=== PATIENT | male | born 1945 | race Caucasian/White ===

== ENCOUNTER 2017-03-03 10:02 | Day surgery (SDC) | payer MEDICARE, BC ==
[2017-03-03] MEDS ORDERED: PROPOFOL 10 MG/ML VIAL IV ONE (14:00)
[2017-03-03] MEDS ORDERED: LIDOCAINE 2% MDV (20MG/ML) 20ML VIAL IV ONE (14:00)
--- NOTE | 2017-03-05 12:10 | Operative Note ---
DATE OF SURGERY: 03/03/2017 OPERATION: ESOPHAGOGASTRODUODENOSCOPY. INDICATION: Episodic left lower chest discomfort, somewhat improved with the use of omeprazole. Upper endoscopy is performed at this time for further evaluation, particularly to rule out esophageal reflux disease. ANESTHESIA: Intravenous sedation was administered by the department of anesthesiology and included Diprivan titrated to effect. PROCEDURE: Following informed consent from this alert individual, including a discussion of the risks and benefits of the procedure and an opportunity for the patient to ask questions, the patient was in the left lateral decubitus position. The Olympus TVR772 video endoscope was inserted into the esophagus without resistance. The proximal esophagus had a normal appearance with normal folds and distensibility. The mid esophagus likewise was free from changes. The squamocolumnar junction was well defined and demonstrated a minute 3 mm shallow ulceration at the gastroesophageal junction. There was no bleeding noted. The stomach was entered and found to be unremarkable. Pylorus was patent. The duodenal bulb, sweep and descending duodenum were examined in a serial fashion and found to be normal as well. The endoscope was then drawn back into the body of the stomach. Retroflexion accomplished following air insufflation failed to demonstrate any additional changes. The endoscope was then straightened and withdrawn back through a normal esophagus. Again a minute 3 mm GE junction ulceration was noted but no other changes were appreciated. The endoscope was then withdrawn back through a normal mid and proximal esophagus and removed from the patient. He tolerated the procedure well and was returned to the recovery area in stable condition. IMPRESSION: Minute 2-3 mm ulceration at the GE junction. Otherwise unremarkable esophagogastroduodenoscopy. RECOMMENDATION: The patient was advised to continue with omeprazole but take it on a daily basis each morning. He was also advised to follow up with Dr. Dietz for possible cardiac evaluation as well, as the discomfort extends to the left shoulder in a numbing type sensation. As always, thank you for allowing me to participate in the care of your patient. Sixto Claudio, CC: SAMIRA DIETZ MD, FACP [facility]
== END 2017-03-03 12:20 | disposition home or self-care (01) ==
LOC: HOP 10:02
PROVIDERS: ATTEND Internal Medicine Gastroenterology
DX: K25.9 Gastric ulcer, unspecified as acute or chronic, without hemorrhage or perforation (principal); E78.00 Pure hypercholesterolemia, unspecified; J44.9 Chronic obstructive pulmonary disease, unspecified; I10 Essential (primary) hypertension

== ENCOUNTER 2019-04-01 08:25 | Day surgery (SDC) | payer MEDICARE, BC ==
[~2019-04-01 08:25] MED LIST: ACETAMINOPHEN 1,000 MG/100 ML BTL IVPB ONE
[2019-04-01] MEDS ORDERED: GLYCOPYRROLATE 0.2 MG/ML ML IV ONE (08:26)
[2019-04-01] MEDS ORDERED: FENTANYL PF 100MCG/2ML VIAL IV ONE (08:26)
[2019-04-01] MEDS ORDERED: PROPOFOL 10 MG/ML VIAL IV ONE (08:26)
[2019-04-01] MEDS ORDERED: ONDANSETRON HCL IV 4 MG/2 ML VIAL IVP ONE (08:26)
[2019-04-01] MEDS ORDERED: MIDAZOLAM HCL 2MG/2ML VIAL IV ONE (08:26)
[2019-04-01] MEDS ORDERED: LIDOCAINE 2% MDV (20MG/ML) 20ML VIAL IV ONE (08:26)
[2019-04-01] MEDS ORDERED: DEXAMETHASONE 4 MG/ML 1ML VIAL IVP ONE (08:26)
[2019-04-01] MEDS ORDERED: SEVOFLURANE 250 ML INH ONE (08:26)
[2019-04-01] MEDS ORDERED: RINGERS SOLUTION,LACTATED 1,000 ML IV ONE (09:00)
--- NOTE | 2019-04-02 09:00 | Operative Note ---
DATE OF SURGERY: 04/01/2019 SURGEON: Damien Reis DO PREOPERATIVE DIAGNOSIS: Trigger finger of the left middle finger. POSTOPERATIVE DIAGNOSIS: Trigger finger of the left middle finger. OPERATION: Tenotomy of the A1 herb of left middle finger using 3.5 loop magnification. DESCRIPTION OF PROCEDURE: This 74-year-old male was taken to the operating room and placed in the supine position on the operating room table. General anesthesia was induced. The left middle finger was prepped with Hibiclens and draped in the usual sterile fashion. It was exsanguinated and the tourniquet inflated to 250 mmHg. A longitudinal incision was made over the palmar surface of the hand centering over the metacarpal head of the 3rd ray. Dissection was carried down through the skin and subcutaneous tissue. Hemostasis obtained with the electrocautery. The proximal edge of the A1 herb of the middle finger was identified. It was incised from its proximal to its distal margin under direct vision. The nodularity of the tendon was seen not to impinge upon the herb, and there was free motion without any catching or locking. The wound was irrigated and subsequently closed with interrupted 6-0 nylon suture. Sterile dressings were applied and the patient taken to the recovery room in satisfactory condition. UNIQUE
== END 2019-04-01 11:36 | disposition home or self-care (01) ==
LOC: SUR 08:25
PROVIDERS: ATTEND Orthopaedic Surgery
DX: M65.332 Trigger finger, left middle finger (principal); I10 Essential (primary) hypertension; E78.00 Pure hypercholesterolemia, unspecified; J44.9 Chronic obstructive pulmonary disease, unspecified
CPT/HCPCS: 26055; 01810; J2405; J3010; J7120